=== PATIENT | male | born 1945 | race Caucasian/White ===

== ENCOUNTER 2018-08-28 05:43 | Day surgery (SDC) | payer BC, MEDICARE ==
[~2018-08-28 05:43] MED LIST: Lactated Ringers 1,000 ML IV SCH; ceFAZolin 2 GM in Premix Bag 1 BAG IV ONE
[2018-08-28] MEDS ORDERED: Lactated Ringers 1,000 ML IV SCH (06:30)
[2018-08-28] MEDS ORDERED: Bupivacaine 0.5%/EPINEPHrine 1:200,000 50 ML MDV ONE (06:42)
[2018-08-28] MEDS ORDERED: Nozin Nasal Sanitizer NASBOTH ONE (06:53)
[2018-08-28] MEDS ORDERED: ceFAZolin 2 GM in Premix Bag 1 BAG IV ONE (07:00)
[2018-08-28] MEDS ORDERED: fentaNYL 100 MCG/2 ML SDV ONE ×2 (07:25→10:38)
[2018-08-28] MEDS ORDERED: Propofol 200 MG/20 ML SDV ONE ×4 (07:25→10:53)
[2018-08-28] MEDS ORDERED: Midazolam 1 MG/ML 2 ML SDV ONE (07:25)
[2018-08-28] MEDS ORDERED: Lidocaine 1% 2 ML ONE (07:28)
[2018-08-28] MEDS ORDERED: Bupivacaine 0.5% 30 ML SDV ONE (07:32)
[2018-08-28] MEDS ORDERED: Insulin Regular, Human 100 Units/ML 3 ML Vial SUBCUT ONE (08:10)
[2018-08-28 13:30] VITALS: BP 132/77
--- NOTE | 2018-08-30 05:01 | PCM.OPNOTE ---
- General Post-Op/Procedure Note Date of Surgery/Procedure: 08/28/18 Operative Procedure(s): Arthroscopy right shoulder, biceps tenotomy, subacromial decompression with acromioplasty, rotator cuff repair Findings: Severe biceps tendonopathy/partial tear, degenerative labrum, partial subscapularis tear, subacromial bursitis, complex rotator cuff tear Pre Op Diagnosis: Traumatic right rotator cuff tear Post-Op Diagnosis: Traumatic right rotator cuff tear, partial subscapularis tear , biceps tendonopathy/partial tear, impingement, subacromial bursitis Anesthesia Technique: Moderate Sedation, Regional Block Primary Surgeon: Horacio BECERRA in mLs: 30 Complications: None Condition: Good Free Text/Narrative:: indications: Richard is a 72-year-old gentleman who sustained a fall resulting in a right rotator cuff tear. Now presents for arthroscopic evaluation of the right shoulder and cuff repair,possible open repair.Risks, benefits and potential complications were discussed. He agrees to proceed. Procedure:After adequate anesthesia was obtainedpatient is placed in a lateral decubitus position and secured with a beanbag. Right shoulder and arm are prepped and draped in a sterile fashion. 10 pounds of traction is placed through the traction unit. Standard posterior portal was established. Glenohumeral joint is inspected.This reveals no articular cartilage damage to the humeral head or glenoid.There is degenerative fraying of the glenoid labrum. A partial-thickness tear of the subscapularis is identified at its superior border estimated to be approximately 25% of the tendon.Moderate synovitis was present throughout the joint.Severe biceps tendinopathy with partial-thickness and intrasubstance tearing is seen.A full-thickness tear of the rotator cuff is identified through the supraspinatus. Anterior portal was established. Shaver was used to debride the degenerative labrum.Biceps tendon was evaluated further and again severe tendinopathy with intrasubstance tearing is noted. Decision is made to proceed with a biceps tenotomy. The ablation wand is used to transect the biceps at its' attachment to the superior labrum. Scope was then withdrawn and placed into the subacromial space. inflamed thickened bursa is present covering the rotator cuff. Lateral portal was established. Using combination of the ablation wand and shaver a bursectomy is performed allowing better visualization.Moderate impingement is noted on the underside of the acromion and coracoacromial ligament. Ligament is taken off of the att to the acromion with the ablation wand. Shaver is then used to perform an acromioplasty removing several millimeters from the undersurface of the acromion.Rotator cuff wof posterior supraspinatus looting portion of the infraspinatus. Anterior aspect of the supraspinatus shows a laminated tear consisting of just over 50% of thickness of the bursal side of the tendon with a flap. An accessory anterolateral portal was established for better angle on the tear and the edge of the tear was debrided and further delineated. Superior surface of the tuberosity at the tendon attachment is debrided and bur then used to decorticate the superior surface down to lightly bleeding bone.Two Mitech anchors were then placed in the tuberosity one anterior and one posterior to the edges of the tear. A separate FiberWire suture was through the partial thickness flap to allow manipulation of this during passage of the sutures through the tear. The Mitech Express-sew device was then utilized to pass the sutures through the full thickness tear posteriorly.Same device was then used to pass the sutures through the anterior aspect up through the partial-thickness tear. During manipulation of the sutures the posterior suture anchor become unloaded the anchor was removed and a 5.5 mm anchor was replaced in the same anchor hole. Sutures from this anchor were then passed with the Express-sew device. Sutures were then tied down sequentially from posterior to anterior.An additional FiberWire suture was passed through the anterior portion and up through the partial-thickness flapThis suture plus sutures from the anterior anchor were then passed through a Mitech lateral row anchor. Awl was used to create a bone tunnel for the lateral anchor in the anterior aspect. Sutures were tensioned and the anchor was then tightened into place. A second lateral row was then placed posteriorly with sutures from the posterior anchor set. This provided a suture bridge with lateral row fixation.Level of the acromioplasty and integrity of the pair were then evaluated, arm was taken through range of motion and the cuff tear was secure. Scope was then withdrawn and port sites were closed with 2-0 Vicryl and 3-0 Monocryl. Steri-Strips were applied and a sterile dressing was placed. Patient tolerated the procedure well there were no complications taken from the operating room in stable condition.
== END 2018-08-28 14:01 | disposition home or self-care (01) ==
LOC: JP.SDS 05:43
PROVIDERS: ATTEND Specialist
DX: S46.011A Strain of muscle(s) and tendon(s) of the rotator cuff of right shoulder, initial encounter (principal); S46.211A Strain of muscle, fascia and tendon of other parts of biceps, right arm, initial encounter; M75.51 Bursitis of right shoulder; M25.811 Other specified joint disorders, right shoulder; I12.9 Hypertensive chronic kidney disease with stage 1 through stage 4 chronic kidney disease, or unspecified chronic kidney disease; E11.22 Type 2 diabetes mellitus with diabetic chronic kidney disease; N18.9 Chronic kidney disease, unspecified; E66.9 Obesity, unspecified; E78.5 Hyperlipidemia, unspecified; Z86.73 Personal history of transient ischemic attack (TIA), and cerebral infarction without residual deficits; Z79.84 Long term (current) use of oral hypoglycemic drugs; Z79.899 Other long term (current) drug therapy; W19.XXXA Unspecified fall, initial encounter
CPT/HCPCS: 29826; 29827; 36415; 80048; 85027; A9270; J0690; J1815; J2001; J2250; J2704; J3010; J3490; J7120; C1713

== ENCOUNTER 2020-05-22 13:54 | Emergency (ER) | payer MEDICARE, OTHER, SELFPAY ==
[2020-05-22 14:13] VITALS: BP 158/79; PULSE 61
--- NOTE | 2020-05-22 14:39 | EDM.PDOC ---
ED HPI GENERAL MEDICAL PROBLEM - General Chief Complaint: Respiratory Problem Stated Complaint: COVID TEST? Time Seen by Provider: 05/22/20 14:36 Source of Information: Reports: Patient, Family, RN Notes Reviewed History Limitations: Reports: No Limitations - History of Present Illness INITIAL COMMENTS - FREE TEXT/NARRATIVE: 74-year-old gentleman presents emergency department today complaint of exposure to Covid he says his roommate has been exposed Covid has been treated with the medication he would like the same thing done to him the only symptom he has is congestion - Related Data Allergies Allergy/AdvReac Type Severity Reaction Status Date / Time theophylline Allergy Difficulty Verified 05/22/20 14:17 Breathing Home Meds: Home Meds Clopidogrel Bisulfate [Clopidogrel] 75 mg PO DAILY 07/03/13 [History] DULoxetine [Cymbalta] 60 mg PO DAILY 07/03/13 [History] Insulin Lispro [HumaLOG] 15 - 30 units SUBCUT DAILY 07/03/13 [History] Metoprolol Tartrate 50 mg PO BID 07/03/13 [History] Nitroglycerin [Nitrostat] 0.4 mg SL ASDIRECTED PRN 07/03/13 [History] Rosuvastatin [Crestor] 20 mg PO DAILY 07/03/13 [History] glipiZIDE [Glucotrol XL] 10 mg PO DAILY 07/03/13 [History] metFORMIN HCl [Glucophage] 500 mg PO BID 07/03/13 [History] Aspirin [Low Dose Aspirin EC] 81 mg PO DAILY 08/18/18 [History] Fenofibrate 160 mg PO DAILY 08/18/18 [History] Furosemide [Lasix] 20 mg PO DAILY PRN 08/18/18 [History] Insulin Degludec [Tresiba Flextouch U-200] 12 units SQ BEDTIME 08/18/18 [History] Lisinopril 5 mg PO DAILY 08/18/18 [History] traZODone HCl [Trazodone HCl] 50 mg PO BEDTIME 08/18/18 [History] Past Medical History HEENT History: Reports: Impaired Vision Cardiovascular History: Reports: CAD, High Cholesterol, Hypertension, LA, Stents Respiratory History: Reports: SOB Gastrointestinal History: Reports: None Genitourinary History: Reports: None Musculoskeletal History: Reports: Other (See Below) Other Musculoskeletal History: right RCR Neurological History: Reports: CVA Psychiatric History: Reports: None Endocrine/Metabolic History: Reports: Diabetes, Type II Hematologic History: Reports: Anticoagulation Therapy Immunologic History: Reports: None Oncologic (Cancer) History: Reports: None Dermatologic History: Reports: None - Infectious Disease History Infectious Disease History: Reports: Chicken Pox, Measles, Mumps, Shingles - Past Surgical History Head Surgeries/Procedures: Reports: None HEENT Surgical History: Reports: None Cardiovascular Surgical History: Reports: Coronary Artery Bypass, Coronary Artery Stent Respiratory Surgical History: Reports: None Endocrine Surgical History: Reports: None Neurological Surgical History: Reports: None Musculoskeletal Surgical History: Reports: Shoulder Surgery, Other (See Below) Dermatological Surgical History: Reports: None Social & Family History - Family History Family Medical History: No Pertinent Family History - Tobacco Use Tobacco Use Status *Q: Never Tobacco User Second Hand Smoke Exposure: No - Caffeine Use Caffeine Use: Reports: Coffee - Recreational Drug Use Recreational Drug Use: No ED ROS GENERAL - Review of Systems Review Of Systems: See Below Constitutional: Reports: No Symptoms HEENT: Reports: No Symptoms Respiratory: Reports: Other (Chest congestion) Cardiovascular: Reports: No Symptoms GI/Abdominal: Reports: No Symptoms ED EXAM, GENERAL - Physical Exam Exam: See Below Exam Limited By: No Limitations General Appearance: Alert, WD/WN, No Apparent Distress Respiratory/Chest: No Respiratory Distress, Lungs Clear, Normal Breath Sounds, No Accessory Muscle Use, Chest Non-Tender Cardiovascular: Regular Rate, Rhythm, No Murmur Course - Vital Signs Last Recorded V/S: Last Vital Signs Temp 95.2 F L 05/22/20 14:16 Pulse 61 05/22/20 14:16 Resp 16 05/22/20 14:16 BP 158/79 H 05/22/20 14:16 Pulse Ox 97 05/22/20 14:16 - Orders/Labs/Meds Orders: Active Orders 24 hr Category Date Time Status CORONAVIRUS COVID-19, [facility] Urgent Lab 05/22/20 14:18 Received INPATIENT Urgent Lab 05/22/20 14:18 Received Departure - Departure Time of Disposition: 14:38 Disposition: Home, Self-Care 01 Condition: Fair Clinical Impression: Exposure to COVID-19 virus - Discharge Information Referrals: Horacio Guerra Sr, MD [Primary Care Provider] - Additional Instructions: Your Covid test will be available 2 to 4 days, follow-up with your primary care as needed call return to the emergency department worsening of symptoms Sepsis Event Note (ED) - Evaluation Sepsis Screening Result: No Definite Risk - Focused Exam Vital Signs: Vital Signs Temp Pulse Resp BP Pulse Ox 05/22/20 14:16 95.2 F L 61 16 158/79 H 97 05/22/20 14:12 95.2 F L 61 16 158/79 H 97 - My Orders Last 24 Hours: My Active Orders 05/22/20 14:18 CORONAVIRUS COVID-19, [facility] Urgent INPATIENT Urgent - Assessment/Plan Last 24 Hours: My Active Orders 05/22/20 14:18 CORONAVIRUS COVID-19, [facility] Urgent INPATIENT Urgent Plan: Assessment Acuity = acute Site and laterality = Covid exposure Etiology = unknown Manifestations = none Location of injury = Home Lab values = Covid test sent out pending Plan Patient became very upset when he was not offered the 15-minute test he was referred to hospital administration This note was dictated using [employer] voice recognition software please call with any questions on syntax or grammar.
== END 2020-05-22 14:50 | disposition home or self-care (01) ==
LOC: JP.ED 13:54
DX: R09.89 Other specified symptoms and signs involving the circulatory and respiratory systems (principal); I25.10 Atherosclerotic heart disease of native coronary artery without angina pectoris; E78.00 Pure hypercholesterolemia, unspecified; I10 Essential (primary) hypertension; I25.2 Old myocardial infarction; E11.9 Type 2 diabetes mellitus without complications; Z86.73 Personal history of transient ischemic attack (TIA), and cerebral infarction without residual deficits; Z20.828 Contact with and (suspected) exposure to other viral communicable diseases; Z79.02 Long term (current) use of antithrombotics/antiplatelets; Z79.4 Long term (current) use of insulin; Z79.899 Other long term (current) drug therapy; Z95.5 Presence of coronary angioplasty implant and graft; Z79.82 Long term (current) use of aspirin
CPT/HCPCS: 99283; U0002

== ENCOUNTER 2022-01-26 11:50 | Emergency (ER) | payer MEDICARE ==
[2022-01-26 12:17] VITALS: BP 149/81; PULSE 86
[2022-01-26] MEDS: Morphine 4 MG/ML Syringe IVPUSH ONE (12:45)
[2022-01-26] MEDS: Acetaminophen/HYDROcodone 325-10 MG Tab PO ONE (13:37)
== END 2022-01-26 13:58 | disposition home or self-care (01) ==
LOC: MERGE 11:50 → JP.ED 11:50
DX: S22.32XA Fracture of one rib, left side, initial encounter for closed fracture (principal); S60.212A Contusion of left wrist, initial encounter; M25.512 Pain in left shoulder; R91.1 Solitary pulmonary nodule; Z88.8 Allergy status to other drugs, medicaments and biological substances; Z79.82 Long term (current) use of aspirin; Z79.4 Long term (current) use of insulin; Z79.899 Other long term (current) drug therapy; Y04.0XXA Assault by unarmed brawl or fight, initial encounter
CPT/HCPCS: 71045; 96374; 99284; A9270; J2270

== ENCOUNTER 2022-11-04 09:17 | Day surgery (SDC) | payer MEDICARE ==
[2022-11-04] MEDS ORDERED: Sodium Chloride 0.9% 10 ML Syringe FLUSH PRN (09:30)
[2022-11-04 09:40] VITALS: PULSE 57
[2022-11-04 10:10] VITALS: BP 147/75
== END 2022-11-04 10:26 | disposition home or self-care (01) ==
LOC: JP.SDS 09:17
PROVIDERS: ATTEND Ophthalmology
DX: H26.9 Unspecified cataract (principal); F41.9 Anxiety disorder, unspecified; F32.A Depression, unspecified; Z79.899 Other long term (current) drug therapy
CPT/HCPCS: 66984; J3490

== ENCOUNTER 2022-11-18 08:28 | Day surgery (SDC) | payer MEDICARE ==
[2022-11-18] MEDS ORDERED: Sodium Chloride 0.9% 10 ML Syringe FLUSH PRN (09:45)
[2022-11-18 09:56] VITALS: BP 128/55; PULSE 63
== END 2022-11-18 10:02 | disposition home or self-care (01) ==
LOC: JP.SDS 08:28
PROVIDERS: ATTEND Ophthalmology
DX: H26.9 Unspecified cataract (principal); I12.9 Hypertensive chronic kidney disease with stage 1 through stage 4 chronic kidney disease, or unspecified chronic kidney disease; N18.9 Chronic kidney disease, unspecified; E11.22 Type 2 diabetes mellitus with diabetic chronic kidney disease; E78.5 Hyperlipidemia, unspecified; I25.10 Atherosclerotic heart disease of native coronary artery without angina pectoris; Z88.8 Allergy status to other drugs, medicaments and biological substances
CPT/HCPCS: 66984; J3490

== ENCOUNTER → 2023-07-27 | Day surgery (SDC) | payer MEDICARE ==
[~2023-07-27] MED LIST changes: +Dexamethasone 4 MG/ML SDV ONE; +Glycopyrrolate 0.2 MG/ML 5 ML MDV ONE; -Lactated Ringers 1,000 ML IV SCH; +Neostigmine Methylsulfate 10 MG/10 ML MDV ONE; +Ondansetron 4 MG/2 ML SDV ONE; +Propofol 200 MG/20 ML SDV ONE; +Rocuronium 50 MG/5 ML Vial ONE; +Succinylcholine 200 MG/10 ML MDV ONE; -ceFAZolin 2 GM in Premix Bag 1 BAG IV ONE; +fentaNYL 250 MCG/5 ML SDV ONE
[2023-07-27 07:07] LABS: HEMATOCRIT 42.6 % (38.4-49.7); HEMOGLOBIN 14.2 g/dL (12.9-16.9); MEAN CORPUSCULAR HEMOGLOBIN 28.1 pg (31.6-35.5); MEAN CORPUSCULAR HGB CONC 33.3 g/dL (31.6-35.5); MEAN CORPUSCULAR VOLUME 84.4 fL (81.4-99.0); RED BLOOD CELL COUNT 5.05 M/uL (4.14-5.76); WHITE BLOOD CELL COUNT,WBC 7.3 K/uL (3.2-11.0)
[2023-07-27 07:21] LABS: ANION GAP 13.8 mmol/L (5.0-14.0); BLOOD UREA NITROGEN,BUN 17 mg/dL (7-18); CARBON DIOXIDE,CO2 31 mmol/L (21-32); CHLORIDE,CL 102 mmol/L (100-108); CREATININE 1.6 mg/dL (0.8-1.3); ESTIMATED GFR 44 mL/min (>60); GLUCOSE RANDOM 161 mg/dL (74-106); POTASSIUM,K 3.8 mmol/L (3.6-5.2); SODIUM,NA 143 mmol/L (140-148)
[2023-07-27 07:22] LABS: A/G RATIO 1.2 (1.2-2.2); ALANINE AMINOTRANSFERASE,ALT 18 U/L (12-78); ALBUMIN 4.1 g/dL (3.4-5.0); ALKALINE PHOSPHATASE 34 U/L (46-116); ASPARTATE AMNIOTRANSFERASE,AST 18 U/L (15-37); BILIRUBIN TOTAL 0.5 mg/dL (0.2-1.0); CALCIUM 9.1 mg/dL (8.5-10.1); PROTEIN TOTAL,TP 7.5 g/dL (6.4-8.2)
[2023-07-27] MEDS: Nozin Nasal Sanitizer NASBOTH ONE (07:30)
[2023-07-27] MEDS: Lactated Ringers 1,000 ML IV SCH (07:30)
[2023-07-27] MEDS: ceFAZolin 1 GM in Premix Bag 1 BAG IV ONE (08:05)
[2023-07-27] MEDS: Bupivacaine 0.5% 50 ML MDV ONE (09:30)
[2023-07-27 11:56] VITALS: BP 121/48; PULSE 66
== END ==
LOC: JP.SDS 06:25
PROVIDERS: ATTEND Specialist
DX: M67.431 Ganglion, right wrist (principal); I10 Essential (primary) hypertension; E78.5 Hyperlipidemia, unspecified; N19 Unspecified kidney failure; I25.10 Atherosclerotic heart disease of native coronary artery without angina pectoris; S69.91XS Unspecified injury of right wrist, hand and finger(s), sequela; X58.XXXA Exposure to other specified factors, initial encounter; Z79.899 Other long term (current) drug therapy
CPT/HCPCS: 36415; 80053; 85027; A9270-GY; J0330; J0665; J0690; J1100; J2405; J2704; J2710; J3010; J3490; J7120

== ENCOUNTER 2023-10-13 00:40 | Emergency (ER) | payer MEDICARE ==
[2023-10-13 01:45] LABS: BASOPHILS ABSOLUTE AUTO 0.03 K/uL (0.00-0.10); BASOPHILS PERCENT AUTO 0.6 % (0.1-1.3); EOSINOPHILS ABSOLUTE AUTO 0.09 K/uL (0.00-0.40); EOSINOPHILS PERCENT AUTO 1.9 % (0.0-5.4); HEMATOCRIT 35.7 % (38.4-49.7); HEMOGLOBIN 12.1 g/dL (12.9-16.9); IMMATURE GRAN PERCENT AUTO 0.2 % (0.0-0.7); LYMPHOCYTES ABSOLUTE AUTO 1.43 K/uL (0.8-3.3); LYMPHOCYTES PERCENT AUTO 30.6 % (11.4-47.7); MEAN CORPUSCULAR HEMOGLOBIN 28.5 pg (31.6-35.5); MEAN CORPUSCULAR HGB CONC 33.9 g/dL (31.6-35.5); MONOCYTES PERCENT AUTO 8.6 % (3.3-12.6); NEUTROPHILS ABSOLUTE AUTO 2.71 K/uL (1.0-7.6); NEUTROPHILS PERCENT AUTO 58.1 % (40.0-78.1); PLATELET COUNT,PLT 147 K/uL (130-375); RED BLOOD CELL COUNT 4.25 M/uL (4.14-5.76); WHITE BLOOD CELL COUNT,WBC 4.7 K/uL (3.2-11.0)
[2023-10-13 01:46] LABS: IMMATURE GRAN ABSOLUTE AUTO 0.01 K/uL (0.00-0.23)
[2023-10-13 02:05] LABS: ALANINE AMINOTRANSFERASE,ALT 14 U/L (12-78); ALBUMIN 3.4 g/dL (3.4-5.0); ALKALINE PHOSPHATASE 30 U/L (46-116); ANION GAP 6.7 mmol/L (5.0-14.0); ASPARTATE AMNIOTRANSFERASE,AST 15 U/L (15-37); BILIRUBIN TOTAL 0.6 mg/dL (0.2-1.0); BLOOD UREA NITROGEN,BUN 21 mg/dL (7-18); CALCIUM 9.1 mg/dL (8.5-10.1); CARBON DIOXIDE,CO2 30 mmol/L (21-32); CHLORIDE,CL 104 mmol/L (100-108); CREATININE 1.6 mg/dL (0.8-1.3); EST CRCL DRUG DOSING (CG) 41.09 mL/min; ESTIMATED GFR 44 mL/min (>60); GLUCOSE RANDOM 133 mg/dL (74-106); POTASSIUM,K 4.5 mmol/L (3.6-5.2); PROTEIN TOTAL,TP 6.7 g/dL (6.4-8.2); SODIUM,NA 141 mmol/L (140-148)
[2023-10-13 02:09] VITALS: PULSE 57
[2023-10-13] MEDS: Sodium Chloride 0.9% 1,000 ML IV ONE (02:24)
[2023-10-13 03:23] VITALS: BP 149/62
== END 2023-10-13 04:14 | disposition home or self-care (01) ==
LOC: JP.ED 00:40
DX: E86.0 Dehydration (principal); I25.10 Atherosclerotic heart disease of native coronary artery without angina pectoris; I12.9 Hypertensive chronic kidney disease with stage 1 through stage 4 chronic kidney disease, or unspecified chronic kidney disease; N18.9 Chronic kidney disease, unspecified; E11.22 Type 2 diabetes mellitus with diabetic chronic kidney disease; I25.2 Old myocardial infarction; Z86.73 Personal history of transient ischemic attack (TIA), and cerebral infarction without residual deficits; Z88.8 Allergy status to other drugs, medicaments and biological substances; Z79.899 Other long term (current) drug therapy; Z79.84 Long term (current) use of oral hypoglycemic drugs; Z79.82 Long term (current) use of aspirin; Z79.4 Long term (current) use of insulin; Z95.5 Presence of coronary angioplasty implant and graft; Z95.1 Presence of aortocoronary bypass graft
CPT/HCPCS: 36415; 80053; 85025; 96360; 99284; J7030

== ENCOUNTER 2025-04-25 12:23 | Emergency (ER) | payer MEDICARE ==
[2025-04-25] MEDS ORDERED: Naloxone 0.4 MG/ML SDV IVPUSH PRN (12:38)
[2025-04-25 12:53] LABS: BASOPHILS ABSOLUTE AUTO 0.04 K/uL (0.00-0.10); BASOPHILS PERCENT AUTO 0.5 % (0.1-1.3); EOSINOPHILS ABSOLUTE AUTO 0.05 K/uL (0.00-0.40); EOSINOPHILS PERCENT AUTO 0.6 % (0.0-5.4); IMMATURE GRAN PERCENT AUTO 0.2 % (0.0-0.7); LYMPHOCYTES ABSOLUTE AUTO 0.78 K/uL (0.8-3.3); LYMPHOCYTES PERCENT AUTO 9.1 % (11.4-47.7); MONOCYTES ABSOLUTE AUTO 0.60 K/uL (0.20-0.90); MONOCYTES PERCENT AUTO 7.0 % (3.3-12.6); NEUTROPHILS ABSOLUTE AUTO 7.04 K/uL (1.0-7.6); NEUTROPHILS PERCENT AUTO 82.6 % (40.0-78.1); PLATELET COUNT,PLT 165 K/uL (130-375); RED BLOOD CELL COUNT 4.98 M/uL (4.14-5.76); WHITE BLOOD CELL COUNT,WBC 8.5 K/uL (3.2-11.0)
[2025-04-25 12:54] LABS: IMMATURE GRAN ABSOLUTE AUTO 0.02 K/uL (0.00-0.23)
[2025-04-25 13:07] LABS: INR 1.0
[2025-04-25 13:12] LABS: A/G RATIO 1.0 (1.2-2.2); ALANINE AMINOTRANSFERASE,ALT 17 U/L (12-78); ASPARTATE AMNIOTRANSFERASE,AST 12 U/L (15-37); BILIRUBIN TOTAL 0.8 mg/dL (0.2-1.0); BLOOD UREA NITROGEN,BUN 17 mg/dL (7-18); CARBON DIOXIDE,CO2 30 mmol/L (21-32); CHLORIDE,CL 100 mmol/L (100-108); CREATININE 1.5 mg/dL (0.8-1.3); EST CRCL DRUG DOSING (CG) 43.11 mL/min; ESTIMATED GFR 47 mL/min (>60); GLUCOSE RANDOM 347 mg/dL (74-106); POTASSIUM,K 4.4 mmol/L (3.6-5.2); PROTEIN TOTAL,TP 7.3 g/dL (6.4-8.2); SODIUM,NA 138 mmol/L (140-148)
[2025-04-25 13:13] LABS: CREATINE KINASE,CK 46.0 U/L (39-308)
[2025-04-25 14:03] LABS: APPEARANCE,URINE SLIGHTLY CLOUDY (CLEAR); GLUCOSE,URINE >=1000 mg/dL (NEGATIVE); OCCULT BLOOD,URINE NEGATIVE (NEGATIVE)
[2025-04-25 14:13] LABS: SQUAMOUS EPITHELIAL CELLS,UR NOT SEEN /HPF
[2025-04-25 14:14] LABS: UROTHELIAL CELLS,URINE NOT SEEN /HPF
[2025-04-25 15:04] VITALS: BP 179/86; PULSE 79
== END 2025-04-25 15:24 | disposition home or self-care (01) ==
LOC: JP.ED 12:23
DX: M54.2 Cervicalgia (principal); I10 Essential (primary) hypertension; M19.90 Unspecified osteoarthritis, unspecified site; E78.00 Pure hypercholesterolemia, unspecified; E11.9 Type 2 diabetes mellitus without complications; Z91.09 Other allergy status, other than to drugs and biological substances; Z88.8 Allergy status to other drugs, medicaments and biological substances; Z79.82 Long term (current) use of aspirin; Z79.4 Long term (current) use of insulin; Z79.899 Other long term (current) drug therapy
CPT/HCPCS: 36415; 70450; 72125; 76377; 80053; 80307; 81001; 82550; 83605; 83735; 85025; 85610; 86140; 96361; 96374; 99284; J7030; J1171